=== PATIENT | female | born 1955 | race Caucasian/White ===

== ENCOUNTER 2021-06-20 15:08 | Outpatient (CLI) | payer OTHER, SELFPAY ==
--- NOTE | ~2021-06-20 | CT_ITS ---
EXAMINATION:CT lung screening DATE: 06/20/2021 15:42 INDICATION: Personal history of nicotine dependence. Current smoker with 30 pack year history. TECHNIQUE: Computed tomography (CT) of the chest was performed without intravenous contrast. Automate d exposure control and iterative reconstruction technique were employed. The dose-length product (DLP ) was 95.44 mGy-cm. COMPARISON: Chest single view 06/15/2020 FINDINGS: There is mild scarring at the lung apices. There is a 13 mm nodule in right lower lobe that is indeterminate for central calcification. There is mild emphysema. There is a 4 mm nodule in left upper lobe. No pleural effusion. There is an aberrant right subclavian artery. The heart size is norm al. There are coronary artery calcifications. No pericardial effusion. There is a mildly enlarged 10 x 14 mm right paratracheal lymph node. There is mild chronic anterior wedging of multiple thoracic ve rtebral bodies. There is severe thoracic spondylosis. IMPRESSION: 1. Lung-RADS category 4A: Suspicious. PET/CT or 3-month noncontrast, low-dose chest CT is recommended . Reviewed, dictated and finalized at location A. IMPRESSION: 1. Lung-RADS category 4A: Suspicious. PET/CT or 3-month noncontrast, low-dose c hest CT is recommended.
== END 2021-06-20 15:09 | disposition home or self-care (01) ==
LOC: CHSIMG 15:11
PROVIDERS: PCP Family Medicine; Visit Provider Family Medicine
DX: Z12.2 Encounter for screening for malignant neoplasm of respiratory organs (principal); Z87.891 Personal history of nicotine dependence
CPT/HCPCS: 71271

== ENCOUNTER 2021-07-05 13:23 | Outpatient (CLI) | payer OTHER, SELFPAY ==
--- NOTE | ~2021-07-05 | PE_ITS ---
EXAMINATION: PET skull to mid thigh DATE: 07/05/2021 15:25 INDICATION: Lung nodule. TECHNIQUE: Blood glucose level was 92 mg/dL. 10.252 mCi of 18-fluorodeoxyglucose (18-FDG) was adminis tered i.v. Low dose computed tomography (CT) images were acquired from the base of the brain to the p roximal thighs for attenuation correction and anatomic localization. Automated exposure control was e mployed. Dose-length product (DLP) was 601 mGy-cm. Positron emission tomography (PET) images were acq uired in the same distribution. COMPARISON: Chest CT 06/20/2021 FINDINGS: Head/neck: There is increased activity in the oropharynx without abnormal CT correlate, likely physio logic. There are no pathologically enlarged lymph nodes. Chest: There is mild scarring at the lung apices without increased activity. There is mild emphysema. There is a 13 mm nodule in right lung lower lobe with maximum SUV of 1.8. No pleural effusion. The h eart size is normal. There are coronary artery calcifications. No pericardial effusion. There is mild mediastinal lymphadenopathy without increased activity, likely reactive. There is an aberrant right subclavian artery. Abdomen/pelvis/proximal thighs: The liver, gallbladder, spleen, pancreas, adrenal glands, and kidneys are normal. There are no dilated loops of bowel. There is diverticulosis of the colon without eviden ce of diverticulitis. The appendix is normal. There is a 5.9 cm cyst without increased activity in l eft ovary. There are no pathologically enlarged lymph nodes. There is no free intraperitoneal fluid. IMPRESSION: 1. 13 mm right lung lower lobe nodule without increased activity, which may be benign, but low-grade neoplasm cannot be excluded. Noncontrast chest CT is recommended in 6 months. 2. 5.9 cm cyst in left ovary, likely benign. Pelvis ultrasound is recommended. Reviewed, dictated and finalized at location A. IMPRESSION: 1. 13 mm right lung lower lobe nodule without increased activity, which may be benign, but low-grade neoplasm cannot be excluded. Noncontrast chest CT is amish mmended in 6 months. 2. 5.9 cm cyst in left ovary, likely benign. Pelvis ultrasound is recommended.
[2021-07-05 13:54] LABS: Glucose Point of Care 92 mg/dl (65-105)
== END 2021-07-05 13:24 | disposition home or self-care (01) ==
LOC: ANHIMG 13:25
PROVIDERS: PCP Family Medicine; Visit Provider Family Medicine
DX: R91.1 Solitary pulmonary nodule (principal); N83.202 Unspecified ovarian cyst, left side
CPT/HCPCS: 78815; A9552

== ENCOUNTER 2021-07-16 07:37 | Outpatient (CLI) | payer OTHER, SELFPAY ==
--- NOTE | 2021-07-16 09:00 | EST_ITS ---
Patient Info Name: Radha Pickett Age: 66 years : 1955 Gender: Female Ht: 63 in Wt: 173 lbs BSA: 1.90 m2 HR: 59 bpm BP: 151 / 52 mmHg Heart Rhythm: Bradycardia Technical Quality: Excellent Exam Date: 07/16/2021 8:59 AM Exam Location: [facility] Patient Status: Outpatient Admit Date: 07/16/2021 Staff Ordering Physician: Rosario Baca Attending Provider: Rosario Baca Exercise Technologist: Christine Ohara CRT Exercise Physician: Lauren Thomas CEP Exam Type: CA stress juan carlos w NM Study Info Indications ChestPain - A nuclear stress test was performed. History/Risk Factors Tobacco Use: Current - Frequency Unknown History/Risk Factors Smoker. Summary 1. 1. Negative lexiscan stress test for ischemic ST changes by ECG criteria. 2. 2. Baseline hypertension. 3. 3. Nuclear scan to follow and will be reported separately. Please correlate with it. Protocol: LEXISCAN Stress ECG Details Stage: REST Duration (min): 1 min : 10 sec HR (bpm): 59 SBP (mmHg): 151 DBP (mmHg): 52 Stage: REST Duration (min): 5 min : 12 sec HR (bpm): 56 SBP (mmHg): 151 DBP (mmHg): 52 Stage: STAGE 1 Duration (min): 0 min : 11 sec HR (bpm): 56 SBP (mmHg): 151 DBP (mmHg): 52 Stage: RECOVERY Duration (min): 0 min : 48 sec HR (bpm): 70 SBP (mmHg): 151 DBP (mmHg): 52 Stage: RECOVERY Duration (min): 1 min : 48 sec HR (bpm): 73 SBP (mmHg): 151 DBP (mmHg): 52 Stage: RECOVERY Duration (min): 2 min : 48 sec HR (bpm): 71 SBP (mmHg): 151 DBP (mmHg): 52 Stage: RECOVERY Duration (min): 3 min : 48 sec HR (bpm): 69 SBP (mmHg): 159 DBP (mmHg): 50 Stage: RECOVERY Duration (min): 4 min : 48 sec HR (bpm): 69 SBP (mmHg): 159 DBP (mmHg): 50 Stage: RECOVERY Duration (min): 5 min : 48 sec HR (bpm): 65 SBP (mmHg): 150 DBP (mmHg): 49 Stage: RECOVERY Duration (min): 6 min : 2 sec HR (bpm): 66 SBP (mmHg): 150 DBP (mmHg): 49 Rest HR: 56 bpm Peak HR: 73 bpm Rest Sys BP: 151 mmHg Peak Sys BP: 163 mmHg Max Pred HR: 156 bpm % Max Pred HR: 47 % Target HR: 133 bpm Max RPP: 11,899 bpm*mmHg Termination Reason: Completed Protocol Cardiac Symptoms: Chest Pressure, Dyspnea Total Time: 0 min : 11 sec Rest Lamar BP: 52 mmHg Peak Lamar BP: 38 mmHg Total Dose: 0.4 mg Resting ECG Sinus bradycardia, borderline ST abnormality in anterolateral leads. Stress ECG No abnormal ST/T wave changes. Arrhythmias No arrhythmias were observed during the examination. Report Signatures
--- NOTE | 2021-07-16 11:46 | WPDCARIOSTRE ---
Nuclear Stress Test INDICATIONS Indications: Shortness of breath PROCEDURE Procedure Performed: Myocardial Perf Spect-Multi Procedure: Patient underwent a lexiscan stress test and immediately was injected with 33.3 mCi of cardiolyte. Multiple tomographic images were obtained. These are of good quality. There is evidence of small size, mild inferior perfusion defect with stress imaging. A separate resting images were obtained after patient was injected with 10 mCi of cardiolyte. Multiple tomographic images were obtained. These are of good quality. There is evidence of small size, mild inferior perfusion defect with rest imaging. CONCLUSION Conclusion: 1. Myocardial perfusion imaging demonstrating fixed small size inferior perfusion defects suggestive of diaphragmatic attenuation artifact. 2. No evidence of reversible ischemia. 3. Left ventriculogram demonstrates normal measured ejection fraction of 77% with no wall motion abnormalities. 4. TID score 0.87 is normal.
== END 2021-07-16 07:38 | disposition home or self-care (01) ==
LOC: CHSCARD 07:38
PROVIDERS: PCP Family Medicine
DX: I25.111 Atherosclerotic heart disease of native coronary artery with angina pectoris with documented spasm (principal)
CPT/HCPCS: 78452; 93017; A9502; J2785

== ENCOUNTER 2021-08-09 09:20 | Outpatient (CLI) | payer OTHER, SELFPAY ==
--- NOTE | ~2021-08-09 | US_ITS ---
EXAMINATION: US pelvic complete w TV DATE: 08/09/2021 09:56 INDICATION: Left ovarian cyst seen on PET scan. Comparison:PET scan dated 07/05/2021 TECHNIQUE: Multiple transabdominal and endovaginal sonographic images of the pelvis performed. FINDINGS: The uterus measures 5.1 x 3.1 x 2.3 cm. The endometrial complex measures 1.5 mm. The right ovary is not visualized. Left ovary measures 5.4 x 5 x 5.5 cm. There is a 4.7 x 4.5 x 4.2 c m left ovarian cyst. No significant free fluid in the pelvis. There is no free fluid in the pelvis. There are no abnormal masses seen on either side. IMPRESSION: 1. 4.7 cm left ovarian cyst, likely benign. Recommend follow-up ultrasound in 6-8 weeks to assess for resolution. Reviewed, dictated and finalized at location B. IMPRESSION: 1. 4.7 cm left ovarian cyst, likely benign. Recommend follow-up ultrasound in 6 -8 weeks to assess for resolution.
== END 2021-08-09 09:21 | disposition home or self-care (01) ==
LOC: CHSIMG 09:25
PROVIDERS: PCP Family Medicine
DX: N83.202 Unspecified ovarian cyst, left side (principal)
CPT/HCPCS: 76830; 76856

== ENCOUNTER 2022-01-31 12:56 | Outpatient (CLI) | payer OTHER, SELFPAY ==
--- NOTE | ~2022-01-31 | CT_ITS ---
EXAMINATION:CT diagnostic chest wo con DATE: 01/31/2022 13:37 INDICATION: Lung nodule follow-up. TECHNIQUE: Computed tomography (CT) of the chest was performed without intravenous contrast. Automate d exposure control and iterative reconstruction technique were employed. The dose-length product (DLP ) was 100.75 mGy-cm. COMPARISON: Chest CT 06/20/2021, PET CT 07/05/2021, chest single view 06/15/20 FINDINGS: There is mild emphysema. There is mild scarring at the lung apices. There is a 13 mm nodule in right lung lower lobe with central calcification, consistent with old granulomatous disease. Calc ified right hilar and mediastinal lymph nodes are consistent with old adenomatous disease. There is s table mild noncalcified mediastinal lymphadenopathy, likely reactive. No pleural effusion. The heart size is normal. There are coronary artery calcifications. No pericardial effusion. There is an aberra nt right subclavian artery. There is mild chronic anterior wedging of multiple thoracic vertebral bod ies. There is thoracic kyphosis and severe spondylosis. IMPRESSION: 1. Stable 13 mm pulmonary nodule, now with central calcification, consistent with old granulomatous d isease. Reviewed, dictated and finalized at location A. ER INVESTMENT CASTING IMPRESSION: 1. Stable 13 mm pulmonary nodule, now with central calcification, consistent wi th old granulomatous disease.
--- NOTE | ~2022-01-31 | US_ITS ---
EXAMINATION: US pelvic complete w TV DATE: 01/31/2022 13:48 INDICATION: Left ovarian cyst. TECHNIQUE: Multiple transabdominal and transvaginal sonographic images of the pelvis were obtained. COMPARISON: Ultrasound 08/09/2021, PET/CT 07/05/21 FINDINGS: TRANSABDOMINAL ULTRASOUND: The uterus measures 3.8 x 2.2 x 2.2 cm. There is no free fluid in the pelvis. TRANSVAGINAL ULTRASOUND: The endometrial complex measures 3 mm in thickness. The right ovary is not visualized. The left ovary measures 5.7 x 5.0 x 4.9 cm. There is a 5.2 cm cyst with peripheral low level echoes in left ovary. IMPRESSION: 1. Persistent 5.2 cm cyst with peripheral low level echoes in left ovary, probably benign. Consider s urgical evaluation. Reviewed, dictated and finalized at location A. TE MIXER IMPRESSION: 1. Persistent 5.2 cm cyst with peripheral low level echoes in left ovary, proba irineo benign. Consider surgical evaluation.
== END 2022-01-31 12:57 | disposition home or self-care (01) ==
PROVIDERS: PCP Family Medicine; Visit Provider Family Medicine
DX: R91.1 Solitary pulmonary nodule (principal); N83.202 Unspecified ovarian cyst, left side
CPT/HCPCS: 71250; 76830; 76856

== ENCOUNTER 2022-03-06 01:26 | Day surgery (SDC) | payer OTHER, SELFPAY ==
--- NOTE | 2022-03-04 11:02 | PC.NURSE ---
Report to the Outpatient Waiting Room, entrance under the green pavilion located off [address], at time __1000 on date __03/06/22 . Planned Procedure Time: __1200 . Time changes happen often and if your time is changed the preop area will call you the afternoon before. - You and your visitor will be asked to self-screen and do not enter if you have any COVID symptoms. - Only one visitor is requested with a max of two and NO children visitors are allowed at this time. - The patient visitor may be requested to leave or wait in car when not with patient due to distancing restrictions. - A mask is optional within the hospital. Patients may have clear liquids (water, carbonated beverages, clear teas, apple juice) until 3 hours prior to surgery with a maximum of 20 ounces. - No food from midnight until time of surgery - Infants may have breast milk until 4 hours before surgery, infant formula 6 hours prior to surgery. - Children will be allowed to drink immediately following surgery. If applicable, please bring a bottle or sippy cup to assist with drinking. Juice, water, soda, and popsicles are readily available. For infants on formula, please bring formula the day of surgery. Pacifiers are allowed. Take the following medications with a SIP of water the morning of surgery: _CARVEDILOL,FLUOXETINE Medications to discontinue per physician __PT STATES SHE STOPPED HER ASPIRIN ON 03/01/22 LAST DOSE (ON HER OWN) ALL VITAMINS AND SUPPLEMENTS 3 DAYS PRE OP Date to take last dose 03/02/22 Please no make-up, nail kinyarwanda, hairspray, perfume, deodorant, or body powder the day of surgery. No jewelry (including any body piercings) or valuables the day of surgery, leave them at home. Please take a shower or bath the night before, or the morning of, surgery with an antibacterial soap. Wear comfortable, loose fitting clothing. Children are encouraged to wear pajamas. - Jewelry must be removed prior to entering the operating room. Rings and piercings that are not removed may be cut off. - The hospital will not accept responsibility for valuables. - Please leave all valuables, including medications, at home the day of surgery. If you are going home after surgery, a licensed special client bus driver must drive you home. - NO public transportation without another adult if you receive anesthesia. - We recommend that an adult stay with you for 24 hours following discharge. - We also recommend that you do not drive, make important decision, drink alcoholic beverages, or take any drugs that were not prescribed by your health care provider for at least 24 hours after your discharge time. For Pediatric surgeries, we recommend two adults accompany the child home. Follow any additional instructions given to you from your surgeon. If you or anyone in your household have experienced Covid symptoms in the past week, please notify your surgeon or the nurse liaison at the phone number below for possible testing. Telephone instructions given to __PATIENT and asked if any additional questions and then verbalized understanding. Patient advised to call surgeon office or pre surgery nurse liaison [phone] if any additional questions.
[2022-03-04 11:13] VITALS: BMI 28.6
[2022-03-06] VITALS (10 sets, daily range): BP systolic 138–156; BP diastolic 49–69; PULSE 59–74; RESP 10–20; TEMP 36.4–36.7; O2SAT 95–100
[2022-03-06] MEDS: LACTATED RINGERS 1,000 ML 30 ML IV CONT ×2 (08:38→11:26)
[2022-03-06] MEDS: KETOROLAC 15 MG/ML VIAL (*BKC) IV PUSH (09:34)
[2022-03-06] MEDS: ACETAMINOPHEN 500 MG TABLET 1000 MG PO (09:34)
--- NOTE | 2022-03-06 09:38 | WPDANESEPPF ---
Anes - Initial Pre Proc Eval Procedure: Operation Date: 03/06/22 10:00 Proposed Procedures p Laparoscopic Bilateral Salpingo Oophorectomy - Mireya Pope MD Date/Time: 03/06/22 09:38 Surgeon: Mireya Pope MD Pre Op Diagnosis: cyst left ovary Patient Data Age: 66 Gender: F Height: 1.63 m Weight: 75.75 kg Last Vital Signs Temp 36.4 C 03/06/22 08:25 Pulse 59 L 03/06/22 08:25 Resp 18 03/06/22 08:25 BP 152/49 H 03/06/22 08:25 Pulse Ox 100 03/06/22 08:25 O2 Del Method Room Air 03/06/22 08:25 Allergies Allergy/AdvReac Type Severity Reaction Status Date / Time Penicillins Allergy Hives Verified 03/06/22 08:40 Home Medications Medication Instructions Recorded Confirmed Type atorvastatin 80 mg tablet 80 mg PO DAILY 06/15/20 03/06/22 History carvedilol 3.125 mg tablet 3.125 mg PO BID 06/15/20 03/06/22 History fluoxetine 20 mg capsule (Prozac) 20 mg PO DAILY 06/15/20 03/06/22 History ascorbic acid (vitamin C) 1,000 mg 1,000 mg PO DAILY 03/04/22 03/06/22 History tablet aspirin 325 mg capsule 325 mg PO HS 03/04/22 03/06/22 History calcium citrate 250 mg 1 tablet PO DAILY 03/04/22 03/06/22 History calcium-vitamin D3 5 mcg (200 unit) tablet zinc 50 mg tablet 50 mg PO DAILY 03/04/22 03/06/22 History Patient hx anesthesia problems: none Family hx anesthesia problems: none Results Review: All pre-operative results and documents have been reviewed as part of the pre-operative evaluation. [facility] Social History Social History Smoking packs per day: 1 Smoking cigarettes per day: 20.0 Years smoked: 46 Smoking pack-years: 46.00 Smoking status: Current every day smoker Tobacco type: cigarettes Living arrangements: with family Spiritual care concerns: No Anes - Eval Final PreProcedure Day of Procedure 03/06/22 09:38 Patient weight: obese Heart: regular rate and rhythm Lungs: decreased breath sounds Airway: Mallampati scale class II Neurological: alert and oriented Last oral intake: >/= 8 hours ASA classification: III Emergent: no Anesthetic plan: proceed Anesthesia type and monitoring: general ETT and standard monitoring Results Review: All pre-operative results and documents have been reviewed as part of the pre-operative evaluation. Informed Consent: The patient's anesthetic plan and its attendant risks and benefits were discussed with the patient/family/POA. Questions were solicited and answers provided to the satisfaction of the patient/family/POA.
[2022-03-06] MEDS: SCOPOLAMINE 1.5 MG PATCH TRANSDERM (09:42)
--- NOTE | 2022-03-06 09:57 | WPDHPUPDATE1 ---
History and Physical Update Update Date/Time: 03/06/22 09:57 History and Physical has been reviewed, including an updated exam of the patient. There are NO changes in the patient's condition. Risks, benefits, and alternatives have been discussed and questions answered. Patient agrees to proceed with procedure.
--- NOTE | 2022-03-06 11:22 | P.OP_ITS ---
Procedure Note - Detailed Date of Procedure 03/06/22 Pre-op Diagnosis cyst left ovary Post-op Diagnosis Same Procedure Performed laparoscopic bilateral salpingo-oophorectomy. Surgeon Mireya Pope MD Anesthesia General Indications Ovarian cyst Findings 5-6 cm left ovarian cyst, benign appearing, normal-appearing right ovary. Normal appearing pelvis otherwise. Description of Procedure The patient was taken to the operating room. She was prepped and draped in the dorsal lithotomy position after induction general anesthesia. A 5 mm incision was made with a scalpel on the abdominal skin in the left upper quadrant of the abdomen. A 5 mm trocar was inserted into the intra-abdominal cavity under direct visualization the scope. In the same fashion an 11 mm left lower quadrant trocar was inserted and a 5 mm infraumbilical trocar was inserted. The sigmoid colon flexure was freed and the colon was moved medially to some degree to so the infundibulopelvic ligament could be isolated and the ureter co uld be identified. The infundibulopelvic ligament was cauterized transected with LigaSure cautery. The paraovarian tissue/ mesosalpinx was cauterized transected with LigaSure cautery. The mesosalpinx between the suspensory ligament of the ovary and the round ligament was cauterized LigaSure cautery to the level of the uterine cornua. This was done in bilateral fashion. The ovary with cyst was placed in endobag and taken out the left lower quadrant trocar site. It was taken out in tact. It was drained inside the bag as the openings the bag was extracorporeal. Right ovary segment the quadrant trocar site. The procedure was terminated. The ureters were identified prior to that were found to be intact. The pelvis was irrigated. Pneumoperitoneum was reduced. The pelvis was irrigated. The pneumoperitoneum was reduced. The trocars were removed. Skin was closed with subcuticular 4 micro. The patient's incisions were covered with Dermabond. She was taken recovery room in stable condition. Sponge lap and needle counts were correct x2. Estimated Blood Loss 20 Pathology Yes Complications No immediate complications Condition Stable Disposition Same day
[2022-03-06] MEDS: fentaNYL CITRATE INJ (*CRX) 100 MCG/2 ML VIAL 25 MCG IV PUSH ×4 (11:55→12:22)
== END 2022-03-06 13:45 | disposition home or self-care (01) ==
PROVIDERS: PCP Family Medicine; Visit Provider Obstetrics & Gynecology
PROC: (CPT 49320; principal; 2022-03-06 10:00)
DX: D27.1 Benign neoplasm of left ovary (principal); N83.8 Other noninflammatory disorders of ovary, fallopian tube and broad ligament; F17.210 Nicotine dependence, cigarettes, uncomplicated; Z79.82 Long term (current) use of aspirin; E66.9 Obesity, unspecified; Z68.28 Body mass index [BMI] 28.0-28.9, adult
CPT/HCPCS: 58661; 88305; 88307; A9270; J0330; J1100; J1885; J2250; J2405; J2704; J3010; J7030; J7120

== ENCOUNTER 2023-09-17 16:05 | Outpatient (CLI) | payer MEDICARE, SELFPAY ==
--- NOTE | 2023-09-17 16:23 | ECG_ITS ---
Test Date: 2023-09-17 16:31:[address] [place] Rate: 56 P: 78 DC: 194 QRS: 84 QRSD: 88 T: 76 QT: 450 QTc: 437 Interpretive Statements SINUS BRADYCARDIA INCOMPLETE RIGHT BUNDLE BRANCH BLOCK NONSPECIFIC ST & T-WAVE ABNORMALITY No previous ECG available for comparison Electronically Signed On 09-18-2023 13:27:14 CDT by Ethan Sharma M.D.
[2023-09-17 16:34] LABS: Basophils Absolute Auto 0.07 K/mm3 (0.00-0.10); Basophils Percent Auto 0.8 % (0.0-1.0); Eosinophils Absolute Auto 0.26 K/mm3 (0.02-0.50); Eosinophils Percent Auto 2.8 % (1.0-6.0); Hematocrit 36.3 % (35.0-42.0); Immature Granulocyte Absolute 0.03 K/mm3 (0.00-0.00); Immature Granulocyte Percent A 0.3 % (0.0-0.0); Lymphocytes Absolute Auto 4.02 K/mm3 (1.10-4.50); Lymphocytes Percent Auto 43.8 % (18.0-42.0); Mean Corpuscular HGB Conc 33.1 g/dL (32-36); Mean Corpuscular Hemoglobin 32.1 pg (27.0-31.0); Mean Corpuscular Volume 97.1 fL (78.0-102.0); Mean Platelet Volume 10.5 fl (9.2-11.8); Monocytes Absolute Auto 0.81 K/mm3 (0.10-0.90); Monocytes Percent Auto 8.8 % (2.0-11.0); Neutrophils Absolute Auto 3.99 K/mm3 (1.70-7.20); Neutrophils Percent Auto 43.5 % (50.0-70.0); Platelet Count Result 216 K/mm3 (150-420); Red Blood Count 3.74 M/mm3 (4.20-5.40); Red Cell Distribution Width 13.9 % (11.6-14.4); White Blood Count 9.2 K/mm3 (4.8-10.8)
[2023-09-17 16:46] LABS: Anion Gap 7 mmol/L (4-12); Blood Urea Nitrogen 28 mg/dL (7-18); Calcium 9.2 mg/dL (8.5-10.1); Carbon Dioxide 27 mmol/L (21-32); Chloride 106 mmol/L (98-108); Estimated Glomerular Filt Rate 44; Glucose 97 mg/dL (70-99); Osmolality Calculated 295 mOsm/kg (285-295); Potassium 4.9 mmol/L (3.5-5.1); Sodium 140 mmol/L (136-145)
== END 2023-09-17 16:06 | disposition home or self-care (01) ==
PROVIDERS: PCP Family Medicine
DX: K43.9 Ventral hernia without obstruction or gangrene (principal); I25.2 Old myocardial infarction; I45.19 Other right bundle-branch block
CPT/HCPCS: 36415; 80048; 85025; 93005

== ENCOUNTER 2024-05-28 11:00 | Outpatient (RCR) | payer MEDICARE, SELFPAY ==
[2024-04-29 14:00] VITALS: BP 124/56; PULSE 58; RESP 16; O2SAT 99; BMI 28.0
== END 2024-06-04 13:40 | disposition home or self-care (01) ==
PROVIDERS: PCP Family Medicine; Visit Provider Family Medicine
DX: Z98.61 Coronary angioplasty status (principal)
CPT/HCPCS: 93798

== ENCOUNTER 2024-07-25 10:02 | Emergency (ER) | payer MEDICARE, SELFPAY ==
[2024-07-25] VITALS (14 sets, daily range): BP systolic 116–141; BP diastolic 47–56; PULSE 55–64; RESP 12–18; TEMP 35.9; O2SAT 96–98
--- NOTE | ~2024-07-25 | XR_ITS ---
XR chest 1V portable Ordering provider: Bin Sahu MD History: 69 years Female with . onset today, Chest pain . Comparison: June 15, 2020 FINDINGS: MEDIASTINUM: The cardiac silhouette is not enlarged. LUNGS: No infiltrates, effusions or pneumothorax. OTHER: No free air under the diaphragm. IMPRESSION: No acute cardiopulmonary pathology. Reviewed, dictated and finalized at location A.
--- NOTE | 2024-07-25 10:03 | ED_ITS ---
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 She took a nitro that did not really help at the time. No nausea vomiting. She has chest tightness across the precordium for the past few hours. she had an NM last year with similar symptoms and got a stent and is taking Effient. At this time, the pain is minimal but slightly present. She also gets lots of GERD issues. tobacco abuse. MD complaint: chest pain and chest discomfort ( Chest tightness) Pertinent past history: coronary artery disease and other ( hyperlipidemia) Onset (ago): hour(s) (2) Timing of current episode: episodic Prior episodes: Yes Onset: during exertion Pain location: substernal and left chest Pain radiation: none Severity: mild Pain scale (0-10): 2 Quality: tightness Relieving factors: nothing Exacerbating factors: nothing Context: other ( patient having chest pain after moving and other patient on the [place] prior to arrival) Associated symptoms: other ( none) Treatment prior to arrival: nitroglycerin ( this did not make changes to the chest pain) Risk Factors Coronary artery disease risk factors: smoking history and hyperlipidemia Thoracic aortic dissection risk factors: none Related Data Home Medications ?Medication ?Instructions ?Recorded ?Confirmed ?Last Taken ?Type atorvastatin 80 mg tablet 80 mg PO DAILY 06/15/20 03/06/22 Unknown History fluoxetine 20 mg capsule (Prozac) 20 mg PO DAILY 06/15/20 03/06/22 03/06/22 05:30 History ascorbic acid (vitamin C) 1,000 mg 1,000 mg PO DAILY 03/04/22 03/06/22 Unknown History tablet calcium 250 mg (as 1 tablet PO DAILY 03/04/22 03/06/22 Unknown History citrate)-vitamin D3 5 mcg (200 unit) tablet zinc 50 mg tablet 50 mg PO DAILY 03/04/22 03/06/22 Unknown History amlodipine 5 mg tablet mg 07/25/24 Unknown History aspirin 81 mg tablet,delayed mg 07/25/24 Unknown History release carvedilol 6.25 mg tablet mg 07/25/24 Unknown History lisinopril 5 mg tablet mg 07/25/24 Unknown History nitroglycerin 0.4 mg sublingual mg 07/25/24 Unknown History tablet prasugrel HCl 10 mg tablet mg 07/25/24 Unknown History Allergies Allergy/AdvReac Type Severity Reaction Status Date / Time Penicillins Allergy Hives Verified 07/25/24 10:30 Review of Systems 2 Review of Systems: All systems reviewed & are unremarkable except as noted in HPI and below Constitutional: Constitutional: Reports no additional constitutional complaints Eyes: Eyes: Reports no additional eye complaints ENT: Reports system reviewed and no additional complaints, except as documented Cardiovascular: Cardiovascular: Reports no additional cardiovascular complaints Respiratory: Respiratory: Reports no additional respiratory complaints Gastrointestinal: Gastrointestinal: Reports no additional gastrointestinal complaints Genitourinary: Genitourinary: Reports no additional female genitourinary complaints Musculoskeletal: Musculoskeletal: Reports no additional musculoskeletal complaints Integumentary/Breasts: Skin/Breast: Reports system reviewed and no additional complaints, except as docu Neurologic: Reports system reviewed and no additional complaints, except as documented Psychiatric: Psychiatric: Reports no additional psychiatric complaints Endocrine: Endocrine: Reports no additional endocrine complaints Hematologic/Lymphatic: Hematologic/Lymphatic: Reports no additional hematologic/lymphatic complaints Allergic/Immunologic: Allergic/Immunologic: Reports no additional allergic/immunologic complaints PMFSH Social History Social History Smoking packs per day: 1 Smoking cigarettes per day: 20.0 Years smoked: 46 Smoking pack-years: 46.00 Smoking status: Current every day smoker Tobacco type: cigarettes Living arrangements: with family Spiritual care concerns: No Exam 2 Const: General: healthy appearing Nutritional Appearance: well nourished Orientation/consciousness: patient oriented x3 HENMT: Head: normal to inspection Ears: external ears normal F telma/Nose/Sinus: Normal external nose present Eyes: Conjunctivae: conjunctivae normal Pupils: Equal, round and reactive pupils present EOM: EOMs intact bilaterally Neck: Neck: normal visual inspection Chest: Chest palpation & inspection: normal inspection of the chest Resp: Effort & Inspection: normal respiratory effort and not labored A uscultation: clear to auscultation bilaterally and no crackles Cardio: Rate: regular rate Rhythm: regular rhythm Heart sounds: no murmurs GI: Inspection: non-distended GI Palp: Yes Soft to palpation and No Tenderness to palpation present (GI) Auscultation: normal bowel sounds : General: Yes bladder normal to palpation Back/Spine/Pelvis: Back: no CVA tenderness Skin: General skin exam: normal color Rashes: no rashes Wounds: no wounds Neuro: General: patient oriented x3 Cranial nerves: Yes Nystagmus not present Speech: normal speech Gait exam (Neuro): Normal gait present Extrem: General: normal to inspection Psych: Mental Status: mental status grossly normal Affect: normal affect Attitude: cooperative Course Vital Signs Vital signs: Vital Signs Temperature 35.9 C L 07/25/24 10:05 Pulse Rate 61 07/25/24 10:05 Respiratory Rate 18 07/25/24 10:05 Blood Pressure 128/56 L 07/25/24 10:05 Pulse Oximetry 98 07/25/24 10:05 Oxygen Delivery Room Air 07/25/24 10:05 Temperature 35.9 C L 07/25/24 10:05 Pulse Rate 55 L 07/25/24 10:05 Respiratory Rate 18 07/25/24 10:05 Blood Pressure 128/56 L 07/25/24 10:05 Pulse Oximetry 98 07/25/24 10:05 Oxygen Delivery Room Air 07/25/24 10:05 MDM - Chest Pain MDM Narrative Medical decision making narrative: patient is a 69-year-old female with some chest pain at this time. We will go ahead and do a cardiac workup. We will get her pain control for the chest pain as needed. She is already taking aspirin. I discussed with the patient about the elevated creatinine and BUN levels but she said she will just drink water to repair that problem at this time. She will need to get that recheck at follow- up. Further, we discussed checking a troponin again in a few hours but she decided that she would like to go back to work at this time and not recheck troponin levels. Her chest pain has resolved at this time. 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 She will come back to the ER for any worse or continued symptoms. Lab Data Attestation: I reviewed the patient's lab results. 07/25/24 10:39 07/25/24 10:39 Labs: Lab Results 07/25/24 Range/Units 10:39 WBC 7.7 (4.8-10.8) K/mm3 RBC 3.73 L (4.20-5.40) M/mm3 Hgb 11.6 L (11.7-13.8) g/dL Hct 35.7 (35.0-42.0) % MCV 95.7 (78.0-102.0) fL MCH 31.1 H (27.0-31.0) pg MCHC 32.5 (32-36) g/dL RDW 13.2 (11.6-14.4) % Plt Count 204 (150-420) K/mm3 MPV 10.1 (9.2-11.8) fl Immature Gran % (Auto) 0.3 H (0.0-0.0) % Neut % (Auto) 55.0 (50.0-70.0) % Lymph % (Auto) 35.0 (18.0-42.0) % [place] % (Auto) 6.8 (2.0-11.0) % Eos % (Auto) 2.3 (1.0-6.0) % Baso % (Auto) 0.6 (0.0-1.0) % Lymph # (Auto) 2.71 (1.10-4.50) K/mm3 [place] # (Auto) 0.53 (0.10-0.90) K/mm3 Eos # (Auto) 0.18 (0.02-0.50) K/mm3 Baso # (Auto) 0.05 (0.00-0.10) K/mm3 Abs Immat Gran (auto) 0.02 H (0.00-0.00) K/mm3 Absolute Neuts (auto) 4.25 (1.70-7.20) K/mm3 Absolute Nucleated RBC 0.00 (0.00-0.00) K/mm3 Nucleated RBC % 0.0 (0-0.0) % Sodium 140 (136-145) mmol/L Potassium 4.5 (3.5-5.1) mmol/L Chloride 105 (98-108) mmol/L Carbon Dioxide 25 (21-32) mmol/L Anion Gap 10 (4-12) mmol/L BUN 32 H (7-18) mg/dL Creatinine 1.52 H (0.55-1.02) mg/dL Estim Creat Clear Calc 32 ml/min Estimated GFR 34 L (59 - ) Glucose 130 H (70-99) mg/dL Calculated Osmolality 298 H (285-295) mOsm/kg Calcium 9.1 (8.5-10.1) mg/dL Total Bilirubin 0.4 (0.00-1.00) mg/dL AST 17 (15-37) U/L ALT 28 (14-59) U/L Alkaline Phosphatase 83 (46-116) U/L Troponin I 4.6 (0.00-60.4) ng/L NT-Pro-B Natriuret Pep 494 H (0-125) pg/mL Total Protein 7.0 (6.4-8.2) g/dL Albumin 3.5 (3.4-5.0) g/dL Lipase 52 (16-77) U/L Imaging Data Attestation: I personally reviewed and interpreted this imaging study as follows: Radiologist's impression: Chest x-ray negative for acute process ECG Data EKG #1: Attestation: I personally reviewed and interpreted this ECG as follows: ECG completion date: 07/25/24 ECG completion time: 10:38 EKG Interpretation: normal rate, sinus rhythm, no ectopy, non-specific ST changes, normal QRS, normal QT, NL axis and no acute changes Discharge Plan Discharge Clinical Impression: Atypical chest pain Patient Disposition: Home Condition: Stable Instructions: Chest Pain (ED) Additional Instructions: Please follow-up with primary doctor in the next week. Please follow-up with the driver operator in the next week. If further chest pain, come back to the ER for further evaluation. Drink plenty of fluids such as water as you do have a dehydration situation and you need to have the creatinine rechecked at follow- up. Patient Language: Bengali Prescriptions: No Action carvedilol 6.25 mg tablet amlodipine 5 mg tablet aspirin 81 mg tablet,delayed release (DR/EC) nitroglycerin 0.4 mg tablet, sublingual lisinopril 5 mg tablet prasugrel HCl 10 mg tablet atorvastatin 80 mg tablet 80 mg PO DAILY Patient Comments: TAKES AT HS fluoxetine [Prozac] 20 mg capsule 20 mg PO DAILY Patient Comments: TAKES 40 MG IN AM ascorbic acid (vitamin C) 1,000 mg Tablet 1,000 mg PO DAILY zinc 50 mg Tablet 50 mg PO DAILY calcium citrate-vitamin D3 250 mg-5 mcg (200 unit) Tablet 1 tablet PO DAILY Follow-up/Referrals: Keven,Lior, M.D. [Primary Care Provider] - Time of Disposition: 11:24
--- NOTE | 2024-07-25 10:03 | ECG_ITS ---
Test Date: 2024-07-25 10:08:06 Measurements Intervals [place] Rate: 60 P: 57 [place]: 176 QRS: 69 QRSD: 89 T: 75 QT: 438 QTc: 441 Interpretive Statements SINUS RHYTHM POSSIBLE RIGHT VENTRICULAR CONDUCTION DELAY [RSR (QR) IN V1/V2] MODERATE T-WAVE ABNORMALITY, CONSIDER ANTERIOR ISCHEMIA [-0.1+ mV T-WAVE IN V3/V4] Compared to ECG 09/17/2023 16:31:17 Possible ischemia now present Sinus bradycardia no longer present Incomplete right bundle-branch block no longer present T-wave abnormality still present Electronically Signed On 07-26-2024 06:55:55 CDT by Anam Emmanuel M.D.
--- OUTSIDE RECORDS SUMMARY | 2024-07-25 10:04 | XMS_ITS | Encounter Summary ---
Author Organization [facility] Address [address] [place] [address] Care Team Providers Care Analytical Laboratory Technician Name Role Phone Mariah Segura Primary Care Provider [phone] Lior Baca MD Primary Care Provider Enrike Kent MD Unavailable [phone] Josefa Green MD Unavailable [phone] Encounter Details Date Type Department Care Team (Late st Contact Info) Description 06/07/2017 Abstract [facility] CONVERSION [address] [place], [place] [id number] , Generic ConversionMD Social History Tobacco Use Types Packs/Day Years Used Date Smoking Tobacco: Former Comments Unknown Sex and Gender Information Value Date Recorded Sex Assigned at Female 09/24/2023 12:17 PM CDT Legal Sex Female 8:48 PM CDT Gender Identity Female 09/24/2023 12:17 PM CDT Sexual Orientation Straight 09/24/2023 12 :17 PM CDT documented as of this encounter Plan of Treatment Upcoming Encounters Date Type Department Care Team (Late st Contact Info) Description 08/10/2024 10:30 AM CDT Appointment [facility] Non Invasive Cardiology - [facility] [address], [place] [id number] Enrike Kent MD [address] [facility] [address] [place] [address] 09/07/2024 9:00 AM CDT [facility] [address] [place] [address] Enrike Kent MD [address] [id number] documented as of this encounter Visit Diagnoses Not on filedocumented in this encounter Care Teams Analytical Laboratory Technician Relationship Specialty Start Date End Date Mariah Segura PA [facility] [address] [place] [address] 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
--- OUTSIDE RECORDS SUMMARY | 2024-07-25 10:04 | XMS_ITS | Clinical Summary ---
Author Organization [facility] Address [address] [place] [address] Care Team Providers Care Room Server Name Role Phone Lior Baca MD Primary Care Provider Enrike Kent MD Unavailable [phone] Josefa Green MD Unavailable [phone] Allergies Active Allergy Reactions Criticality Noted Date Comments Varenicline Headache 04/27/2024 Rosuvastatin Other (see comment) 04/27/2024 Leg pain Doxycycline Other (see comment) 04/27/2024 Tetracyclines; red face Venlafaxine Other (see comment) 04/27/2024 Sweating Erythromycin Hives 04/27/2024 Penicillins Anaphylaxis High 09/01/2015 Medications atorvastatin 80 MG tablet Take 1 tablet (80 mg total) by mouth nightly at bedtime. Active FLUoxetine (PROZAC) 40 MG capsule Take 1 capsule (40 mg total) by mouth daily. Active omeprazole EC (PRILOSEC OTC) 20 MG tablet Take 1 tablet (20 mg total) by mouth daily. Every other day Active prasugrel (EFFIENT) 10 MG tablet Take 1 tablet (10 mg total) by mouth daily. Active aspirin EC (ECOTRIN) 81 MG tablet Take 1 tablet (81 mg total) by mouth daily. Active vitamin C (ASCORBIC ACID) 1000 MG tablet Take 1 tablet (1,000 mg total) by mouth daily. Active fluticasone propionate (FLONASE) 50 MCG/ACT nasal spray 2 sprays by Each Nostril route daily. Active nitroglycerin (NITROSTAT) 0.[address] 1 tablet (0.4 mg total) under the tongue every 5 (five) minutes as needed for Chest Pain. Active calcium carbonate (OS-LUIS) 600 MG tablet Take 1 tablet (600 mg total) by mouth 2 (two) times daily. Active Cetirizine HCl (ZYRTEC ALLERGY) 10 MG Cap Take 10 mg by mouth daily. Active vitamin D3 (CHOLECALCIFERO L) 25 mcg tablet Take 1 tablet (25 mcg total) by mouth daily. Active zinc gluconate 50 MG Tab Take 1 tablet (50 mg total) by mouth daily. Active B Complex Vitamins (VITAMIN B-COMPLEX) Tab Take 1 tablet by mouth daily. Active evolocumab (REPATHA SURECLICK) 140 MG/ML injection (PEN) Inject 1 mL (140 mg total) into the skin every 14 (fourteen) days. Active lisinopril (PRINIVIL) 5 MG tablet Take 1/2 tablet for 3 days, then increase to 1 tablet by mouth daily 90 tablet 3 5 Active carvedilol (COREG) 6.25 MG tablet Take 1 tablet (6.25 mg total) by mouth 2 (two) times daily. 60 tablet 5 5 Active carvedilol (COREG) 6.25 MG tablet Take 1 tablet (6.25 mg total) by mouth 2 (two) times daily. 3 07/08/19 25 Discontinu ed(Reorder ) Active Problems Problem Noted Date Diagnosed Date Nonrheumatic mitral valve regurgitation 05/04/19 25 Primary hypertension 05/04/2024 Ventral hernia without obstruction or gangrene 0 09/17/2023 COPD (chronic obstructive pu lmonary disease) ([facility]) 09/17/2023 Kidney disease 07/28/2019 Hyperlipidemia 07/28/2019 Anxiety 07/28/2019 Heart attack ([facility]) 07/28/2019 Encounters Date Type Department Care Team Description 07/07/2024 Telephone [facility] [address] [place] [address] Enrike Kent MD Reschedule (Stress echo) 06/10/2024 8:17 AM CDT - 06/10/2024 11:59 PM CDT Hospital Encounter [facility] [address] [place] [address] Markus Vanegas NP-[place] Discharge Disposition: Home or Self Care (Routine Discharge) 06/10/2024 Travel 05/26/2024 Telephone [facility] [address] [place] [address] Enrike Kent MD Reschedule (Stress echo) 05/07/2024 9:15 AM CELL PREPARER - 05/07/2024 11:59 PM CELL PREPARER Hospital Encounter [facility] [address] [place] [address] Markus Vanegas TRACK REPAIR SUPERVISOR-[place] Discharge Disposition: Home or Self Care (Routine Discharge) 05/07/2024 Travel 05/04/2024 3:00 PM CELL PREPARER Office Visit [facility] [address] [place] [address] Enrike Kent MD Consult ([facility] refer for stent follow up from [facility], [employer], records requested, 04/18/24 EKG) 05/04/2024 Telephone [facility] [place] [place] [address] Enrike Kent MD Appointment Request 05/04/2024 Telephone [facility] [address] [place] [address] Enrike Kent MD Schedule Test 05/04/2024 Travel 04/30/2024 Telephone [facility] [address] [place] [address] nErike Kent MD Cardiac Rehab 04/29/2024 Scan [facility] [address] [place] [address] Scanned, Doc Pccl 04/27/2024 Abstract [facility] [address] [place] [address] Abstract, Doc Pccl 04/27/2024 Telephone [facility] ie [address] [place] [address] [phone] Enrike Kent MD Appointment Request from Last 3 Months Family History Medical History Relation Comments COPD Mother Coronary artery disease Mother Kidney Disease Mother Diabetes Sister Hypertension Sister Relation Status Comments Mother Sister Social History Tobacco Use Types Packs/Day Years Used Date Smoking Tobacco: Every Day Cigarettes Passive Smoke Exposure: Current Smokeless Tobacco: Never Tobacco Cessation:Ready to Q uit: No; Counseling Given: No Alcohol Use Standard Drinks/Week Comments Not Currently 0 (1 standard drink = 0.6 oz pur e alcohol) Comments No Sex and Gender Information Value Date Recorded Sex Assigned at Female 09/24/2023 12:17 PM CDT Legal Sex Female 8:48 PM CDT Gender Identity Female 09/24/2023 12:17 PM CDT Sexual Orientation Straight 09/24/2023 12 :17 PM CDT Last Filed Vital Signs Vital Sign Reading Time Taken Comments Blood Pressure 120/50 05/04/2024 3:18 PM CELL PREPARER Pulse 67 05/04/2024 3:18 PM CELL PREPARER Temperature 35.6 C (96.1 F) 04/18/2024 6:52 AM CELL PREPARER Respiratory Rate 16 05/04/2024 3:18 PM CELL PREPARER Oxygen Saturation 97% 05/04/2024 3:18 PM CELL PREPARER Inhaled Oxygen Concentration - - Weight 73.7 kg (162 lb 6.4 oz) 05/04/2024 3:18 P M CELL PREPARER Height 162.6 cm (5' 4 ) 05/04/2024 3:18 PM CELL PREPARER Body Mass Index 27.88 05/04/2024 3:18 PM CELL PREPARER Plan of Treatment Upcoming Encounters Date Type Department Care Team (Late st Contact Info) Description 08/10/2024 10:30 AM CDT Appointment [facility] Non Invasive [facility] - [facility] [address] [place] [address] Enrike Kent MD [address] [facility] [address] [place] [address] 09/07/2024 9:00 AM CDT Office Visit [facility] [place] [address] Enrike Kent MD [address] [facility] [address] [place] [address] Health Maintenance Due Date Last Done Comments Colorectal Cancer Screening Colonoscopy (10 Years) 1957 Hepatitis C 1975 RSV Immunization or 60+ Years (1 - Risk 60-74 years 1-dose series) 2017 Zoster Vaccines (2 of 2) 01/25/2021 11/30/2020 Annual Medicare Wellness Visit 2022 Dexa Scan (General) 2022 COVID-19 Vaccine (1 - 2023-2 5 season) 2023 PHQ-2 (Physician [place]) 03/24/2024 Mammogram Screening 06/10/2026 06/10/2024 DTaP, Tdap and Td Vaccines ( 2 - Td or Tdap) 11/30/2030 11/30/2020 Pneumococcal Vaccine: 50+ Years Completed 05/07/2022, 11/30/2020 Meningococcal B Vaccine Aged Out No l onger eligible based on patient's age to complete this topic Meningococcal Vaccine Aged Out No kayla luis eligible based on patient's age to complete this topic RSV Immunizations Under 20 Months Aged Out No longer eligible b ased on patient's age to complete this topic Medical Devices Implanted Type Area Nail Maker Device Identifier Shelf Expiration Date Model / Serial / Lot Mesh Symbotex Composite 12cm - [id number] Implanted:Qty: 1 on 09/18/2023 by Rod Giang MD at [facility] Mesh N/A: Abdomen [employer] [id number] 12/22/2027 [id number] / / [id number] Procedures Procedure Name Priority Date/Time Associated Diagnosis Comments MG SCREENING W RADHA EDMUNDO DIGI Routine 06/10/2024 8:33 AM CDT Visit for screening mammogram CT LUNG SCREENING Routine 05/07/2024 9:3 3 AM CELL PREPARER History of tobacco use disorder from Last 3 Months Results * MG SCREENING W RADHA EDMUNDO DIGI (06/10/2024 8:33 AM CDT) Anatomical Region Laterality Modality Breast Bilateral Mammography 06/10/2024 10:0 3 AM CDT Impressions 06/10/2024 10:03 AM CDT IMPRESSION: No suspicious change since the previous exams. Recommendation: 1: Routine Screening Bilateral in 1 Year Assessment: ACR BI-RADS 2 - BENIGN FINDING(S) Ordered By: MARKUS VANEGAS Interpreted By: Tai Love MD, 06/10/2024 10:03 AM Narrative 06/10/2024 10:03 AM CDT [address] [place] [address] Examination: Digital screening mammogram with CAD. Clinical history: Asymptomatic patient presents for routine screening. Comparison: 12/03/2017, 07/17/2015, 01/17/2012. Technique: Bilateral digital mammograms. The exam was interpreted with the use of a computer-aided detection (CAD) system. Additional 3-D tomosynthesis images were acquired. Tissue density: There are scattered areas of fibroglandular density. Findings: The breast tissue contains scattered fibroglandular densities. Metallic biopsy marker on the right again evident. No suspicious mass, microcalcification or area of architectural distortion can be identified. From a mammographic standpoint, routine followup in one year would seem adequate. us Markus Vanegas TRACK REPAIR SUPERVISOR-C MAMMO Final R esult * CT LUNG SCREENING (05/07/2024 9:33 AM CELL PREPARER) Anatomical Region Laterality Modality Chest Computed Tomogra phy 05/07/2024 12:0 9 PM CELL PREPARER Impressions 05/07/2024 12:19 PM CELL PREPARER IMPRESSION: 1. LUNG-RADS category 1: Negative, no evidence of primary lung cancer. 2. LUNG-RADS category S: Coronary artery and carotid atherosclerotic calcifications. 3. Other incidental findings as above. RECOMMENDATIONS: Continued routine annual LDCT lung screening. Suggest next exam on or around May 07, 2025. Thank you for choosing the [facility] Lung Screening Program. Ordered By: MARKUS VANEGAS Interpreted By: Chaitanya Elizalde DO, 05/07/2024 12:09 PM Narrative 05/07/2024 12:19 PM CELL PREPARER [place] [id number] [facility] [place] [address] EXAM: LUNG SCREENING LOW-DOSE CT THORAX WITHOUT CONTRAST DATE: May 07, 2024. HISTORY: Asymptomatic patient with history of smoking meeting [facility] high-risk criteria for lung screening. * 67 years * 30 pack years or greater * Current smoker or have quit smoking within the last 15 years COMPARISON: Chest radiographs 04/18/2024, and 07/06/2014. TECHNIQUE: Noncontrast, helical, low-dose CT (LDCT) chest per standard departmental protocol. A dose lowering technique was used for this procedure, which may include, but is not limited to, dose reduction technique, automated exposure control, the use of iterative reconstruction, and ALARA (As Low As Reasonably Achievable) / Image Gently techniques. FINDINGS Lung Screening Specific (LUNG-RADS): Negative. Nodules with specific calcifications: complete, central, popcorn, concentric rings, and fat containing nodules. Nodule 1 (image 120, series 3): 14 mm solid, smooth, parenchymal nodule with central calcification in the right lower lobe. Nodule 2 (image 38, series 3): 2 mm solid, smooth, calcified nodule in the left upper lobe. Potentially Significant Incidentals (LUNG-RADS category S): There are carotid atherosclerotic calcifications. There are coronary artery calcifications. Pulmonary Incidentals: There is paraseptal emphysema. Other Incidentals: Degenerative arthritis affects the visualized lower cervical spine. Multilevel degenerative disc disease affects the thoracic spine, most prominent in the mid thoracic spine. There are atherosclerotic calcifications of the thoracic aorta with normal anatomic variant aberrant right subclavian artery. There are atherosclerotic calcifications of the visualized upper abdominal aorta. A splenunculus is incompletely visualized Procedure Note Chaitanya Elizalde, - 05/07/2024 [facility] [address] [facility] [address] [place] [address] EXAM: LUNG SCREENING LOW-DOSE CT THORAX WITHOUT CONTRAST DATE: May 07, 2024. HISTORY: Asymptomatic patient with history of smoking meeting [facility]-risk criteria for lung screening. * 69 years * 30 pack years or greater * Current smoker or have quit smoking within the last 15 years COMPARISON: Chest radiographs 04/18/2024, and 07/06/2014. TECHNIQUE: Noncontrast, helical, low-dose CT (LDCT) chest per standarddepartmental protocol. A dose lowering technique was used for thisprocedure, which may include, but is not limited to, dose reductiontechnique, automated exposure control, the use of iterativereconstruction, and ALARA (As Low As Reasonably Achievable) / Image Gentlytechniques. FINDINGS Lung Screening Specific (LUNG-RADS): Negative. Nodules with specificcalcifications: complete, central, popcorn, concentric rings, and fatcontaining nodules. Nodule 1 (image 120, series 3): 14 mm solid, smooth, parenchymal nodulewith central calcification in the right lower lobe. Nodule 2 (image 38, series 3): 2 mm solid, smooth, calcified nodule in theleft upper lobe. Potentially Significant Incidentals (LUNG-RADS category S): There are carotid atherosclerotic calcifications. There are coronaryartery calcifications. Pulmonary Incidentals: There is paraseptal emphysema. Other Incidentals: Degenerative arthritis affects the visualized lowercervical spine. Multilevel degenerative disc disease affects the thoracicspine, most prominent in the mid thoracic spine. There are atheroscleroticcalcifications of the thoracic aorta with normal anatomic variant aberrantright subclavian artery. There are atherosclerotic calcifications of thevisualized upper abdominal aorta. A splenunculus is incompletelyvisualized IMPRESSION: 1. LUNG-RADS category 1: Negative, no evidence of primary lung cancer. 2. LUNG-RADS category S: Coronary artery and carotid atheroscleroticcalcifications. 3. Other incidental findings as above. RECOMMENDATIONS: Continued routine annual LDCT lung screening. Suggestnext exam on or around May 07, 2025. Thank you for choosing the [facility]ening[facility]. Ordered By: MARKUS VANEGAS Interpreted By: Chaitanya Elizalde DO, 05/07/2024 12:09 PM Markus Vanegas TRACK REPAIR SUPERVISOR-C CT Final R esult from Last 3 Months Insurance [employer] Care Teams Room Server Relationship Specialty Start Date End Date Lior aBca MD [address] [facility] [place] [phone] PCP - General FAMILY PRACTICE 04/18/24 Enrike Kent MD [address] [facility] [address] [place] [address] Physician INTERVENTIONAL CARDIOLOGY 04/27/24 Josefa Green MD [address] [place] [address] CARDIOLOGY 04/27/24
--- OUTSIDE RECORDS SUMMARY | 2024-07-25 10:04 | XMS_ITS | Data Portability ---
Author Organization [facility] Address [address] [place] [address] Care Team Providers Care Depalletizer Operator Name Role Phone ZEUS VARGAS Primary Care Provider [phone] Assessment Encounter Date Assessment Date Assessment LastModified by Organization Details LastModified Time 02/26/2022 02/26/2022 This patient is 66-year-old female with a persistent and growing left ovarian cyst. Is low in suspicion for malignancy but needs to be ruled out entirely. We are getting CA 125 today. We talked about laparoscopic bilateral salpingo-oophor ectomy. We agreed to move forward with that. We made a decision to perform surgery today. Spent over 40 minutes [id number]. More than 50% was counseling. Talked about the etiology, natural history and treatment of ovarian cyst in her age group. Talked about the procedure in detail. Talked about risks, benefits and alternatives. She understands there is risk of injury and that injuries can result in hospitalization , more surgery, severe illness. [email or web address] Not available 02/26/2022 11:51:53 Plan of Treatment Reminders Order Date Submit Date Provider Last Modified By Organization Details Last Modified Time Details Appointments None recorded. Lab None recorded. Referral None recorded. Procedures None recorded. Surgeries salpingo-oo phorectomy, laparoscopi c (SURG) 2021 022 [facility] Surgery [facility], [address], [place], [address], 15:20:26 Imaging None recorded. Medication Orders None recorded. Patient TargetsNo targets recorded. Patient InstructionsNo instructions recorded. Reason for Referral None Reported. Results Created Date Observation Date Name Description Value Unit Range Abnormal Flag Note LastModifiedBy Organization Detail LastModifiedTime 02/27/20 22 02/26/2022 CA 125 Ca 125 13.0 units /mL 0.0-35 .0 This assay was perfo rmed using [employer] ratio n reage nts and test kits. Value s obtai deisi with other assay metho ds or kits canno t be used inter bhatt eably . Not Available [facility] (Lab) [address], [place], [address], 02/27/2022 03:32:41 02/06/20 22 01/31/2022 US, pelvi s, compl ete No observ ation record ed. [address] [place], [address], 02/06/2022 11:46:10 Result Notes None recorded. Procedures Surgical History Date Name Laterality Status Provider Name and Address Organization Details Recorded Time 03/06/20 22 SALPINGO-OOPHOREC GERALDO, LAPAROSCOPIC (SURG) completed Caryl Le [facility] 03/07/2022 10:14:59 09/06/19 20 Date of Last Pap Smear completed [facility] 03/13/2022 14:31:59 09/06/19 20 Date of Last Mammogram completed [facility] 03/13/2022 14:31:59 03/24/18 70 Tonsillectomy completed [facility] 02/26/2022 10:57:31 Tonsillectomy completed [facility] 03/13/2022 14:32:07 Imaging Results Imaging Date Name Status LastModified by Organiz ation Details LastModified Time 01/31/2022 US, pelvis, complete completed [address] [place], [address], 02/06/2022 11:46:10 Procedure Notes None recorded. Medical Equipment None Reported. Allergies Allergen ID Allergen Name Allergen Category Reaction Reaction Severity Criticality Documentation Date Start Date Code Code System Note Provider Name and Address Organization Details Recorded Time 53394 Product containin g penicilli n (product) medicatio n Not available Not available Not available 02/26/2022 81825 8001 SNOMED [facility] 2 11:11:04 Medications Name Sig Start Date Stop Date Status Note LastModified by Organization Details LastModified Time fluoxetine 40 mg capsule active Not Available Not Available N ot Available atorvastatin 80 mg tablet active Not Available Not Available Not Available carvedilol 3.125 mg tablet active Not Available Not Available Not Available Vitals Date Recorded Body height Body mass index (BMI) Body weight Systolic blood pressure Diastolic blood pressure Provider Name and Address Organization Details Last Updated DateTime 02/26/2022 162.56 cm 28.5 kg/m2 72672.33 g 167 mm[Hg] 72 mm[Hg] [facility] 2 11:10:44 Date Recorded Body height Body mass index (BMI) Body weight Systolic blood pressure Diastolic blood pressure Provider Name and Address Organization Details Last Updated DateTime 03/13/2022 162.56 cm 28.3 kg/m2 43345.74 g 165 mm[Hg] 67 mm[Hg] [facility] 2 14:31:55 Social History Question Answer Notes LastModified by Organizat ion Details LastModified Time Tobacco Smoking Status Current Every Day Smoker [facility] 03/13/2022 14:32:04 What Is Your Level Of Alcohol Consumption? Occasional Information not available 03/13/2022 How Many Years Have You Consumed Alcohol? 40 Information not available 03/13/2022 Are You Blind Or Do You Have Difficulty Seeing? No Information not available 03/13/2022 What Is Your Level Of Caffeine Consumption? Occasional Information not available 03/13/2022 How Much Tobacco Do You Chew? None Information not available 03/13/2022 In The 14 Days Before Symptom Onset, Have You Had Close Contact With A Laboratory-confir med COVID-19 While That Case Was Ill? No Information not available 03/13/2022 In The 14 Days Before Symptom Onset, Have You Had Close Contact With A Person Who Is Under Investigation For COVID-19 While That Person Was Ill? No Information not available 03/13/2022 Have You Been To An Area Known To Be High Risk For COVID-19? Yes Information not available 03/13/2022 Are You Deaf Or Do You Have Serious Difficulty Hearing? No Information not available 03/13/2022 What Type Of Diet Are You Following? REGULAR Information not available 03/13/2022 What Is The Highest Grade Or Level Of School You Have Completed Or The Highest Degree You Have Received? 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 No Information not available 03/13/2022 Do You Use Protection During Sex? No Information not available 03/13/2022 Do You Use Your Seat Belt Or Car Seat Routinely? Yes Information not available 03/13/2022 Do You Have Smoke And Carbon Monoxide Detectors In Your Home? Yes Information not available 03/13/2022 At What Age Did You Start Smoking Tobacco? 20 Information not available 03/13/2022 How Much Tobacco Do You Smoke? 0.5 PPD Information not available 03/13/2022 Do You Feel Stressed (tense, Restless, Nervous, Or Anxious, Or Unable To Sleep At Night)? [id number] Information not available 03/13/2022 Do You Use Any Illicit Or Recreational Drugs? No Information not available 03/13/2022 Do You Use Sunscreen Routinely? Yes Information not available 03/13/2022 How Many Years Have You Smoked Tobacco? 45 Information not available 02/26/2022 Have You Used IV Drugs? No Information not available 03/13/2022 Sex: Unknown Functional Status Question Answer Note LastModified by Organizat ion Details LastModified Time Are you able to walk? YESWOREST Information not available 03/13/2022 What is your exercise level? Occasional Information not available 03/13/2022 Mental Status None recorded. Family History Relationship Description Onset Age of this Age Resolved Age Notes LastModified by Organization Details LastModified Time Sister Diabetes mellitus Not available 2021 10:56:52 Medical History Condition Response Anxiety Disorder Y Heart Problems Y High Cholesterol Y Gynecological History Statement/Question Response Date of Last Mammogram 09/06/2019 Date of LMP 02/21/2010 On BCP's at Conception? N N Was last menstrual period normal Y STIs/STDs N HPV Vaccine N Duration of Flow (days) 4 Current Control Method Sterilizati on Age at First Child 22 If Post Menopausal, Age at Menopause 52 Frequency of Cycle (Q days) 28 Sexually Active? Y None Age of first menstrual cycle 17 Date of Last Pap Smear 09/06/2019 Sexual Problems? N Desired Control Method None LMP Approximate Y Obstetrics History GPAL:G 3 P 3 0 0 3 Type Value Full Term 3 Living 3 Total 3 Past Encounters Encounter ID Performer Location Encounter Start Date Encounter Closed Date Diagnosis/Indication Diagnosis SNOMED-CT Code Diagnosis ICD10 Code Diagnosis Note [id number] Telly Pope MD [facility] [address] [address] 02/26/2022 10:30:33 02/26/2022 13:13:07 Cyst of left ovary [id number] N83.202 This patient is a 66-year-ol d female with large and growing left ovarian cyst. We have agreed to perform laparoscop ic bilateral salpingo-o ophorectom y. She understand s risks, benefits, and alternativ es. She has completed the informed consent process is ready to proceed. [id number] Telly Pope MD [facility] [address] [address] 03/07/2022 09:49:38 03/07/2022 09:51:10 [id number] Telly Pope MD [facility] [address] [address] 03/13/2022 14:16:12 03/14/2022 14:21:23 Postoperative care [id number] Z48.89 This patient is a 66-year-ol d female who presents for postop follow-up. She had a laparoscop ic bilateral salpingo-o ophorectom y 1 week ago. She is recovering normally. Her incisions are clean dry and intact. She will follow-up as needed Health Concerns Section Related Observation LastModified by Organization Detai ls LastModified Time None Recorded Concern Status LastModified by Organization Details LastModified Time None Recorded Advance Directives Directive None Recorded Payers Encounter Date Sequence Insurance Name Policy Number Policy Mai Covered Member ID Mai Member ID Guarantor Name 02/26/2022 1 [employer] [id number] Radha Velasco Piyush [id number] Radha Piyush 03/06/2022 1 UMR [id number] Radha J Piyush [id number] Radha Piyush 03/13/2022 1 UMR [id number] Radha J Piyush [id number] Radha Piyush Notes Date Note Type Note Provider Name and Address Organization Details Recorded Time 02/26/2022 text/html This patient is 66-year-old female with a persistent and growing left ovarian cyst. Is low in suspicion for malignancy but needs to be ruled out entirely. We are getting CA 125 today. We talked about laparoscopic bilateral salpingo-oophorect andria. We agreed to move forward with that. We made a decision to perform surgery today. Spent over 40 minutes [id number]. More than 50% was counseling. Talked about the etiology, natural history and treatment of ovarian cyst in her age group. Talked about the procedure in detail. Talked about risks, benefits and alternatives. She understands there is risk of injury and that injuries can result in hospitalization, more surgery, severe illness. Telly Pope MD [address], [place], [address], [facility] 02/26/2022 11:52:11 03/13/2022 text/html This patient is a 66-year-old female who presents for postop follow-up. She had a laparoscopic bilateral salpingo-oophorect andria 1 week ago. She is recovering normally. Her incisions are clean dry and intact. She will follow-up as needed Telly Pope MD [address], [place], [address], [place] [facility] 03/13/2022 18:45:10 OBGyn Episode Ob Episode Information Episode Created Date Number of Fetuses Patient Bloodtype Patient rh Status Prepregnancy Weight lbs Domestic Partner Domestic Partner Phone Father Name Orthopaedic General Status 02/27/20 22 1 CLOSED Fetus Data First Name Last Name Admitted to NICU Weight (g) Sex Living Outcome Pediatric Complications Fetus ID Race Codes Race Delivery Type 3259.96 5704 F Full Term [id number] Vaginal Delivery Rodrigue Calculation Initial Rodrigue Date Initial Exam Date Initial Exam Provider Initial Ultrasound Date Last Menstrual Period Date Ultra Sound Weeks Gestation 0 Eighteen To Twenty Week Rodrigue Update Ultra Sound Date Fundal Height At Umbil Quickening Date Ultra Sound Latest Weeks Gestation Final Rodrigue Confirmed By Final Rodrigue Confirmed Date Final Rodrigue Date Ultra Sound Latest Days Gestation 0 0 Menstrual History Last Menstrual Date Menses Monthly On Bcp Conception Prior Menses Frequency Hcg Plus Date Menarche Onset Age Delivery Information Delivery Date Delivery Type Labor Anesthesia Weeks Gestation Incision Type Labor Labor Length Hrs Delivered By Post Complications Tubal Sterilization Discharge Date Comments 8 Jil Discharge Information Feeding Method Contraceptive Method Maternal HG B and HCT Levels Ob Episode Information Episode Created Date Number of Fetuses Patient Bloodtype Patient rh Status Prepregnancy Weight lbs Domestic Partner Domestic Partner Phone Father Name Orthopaedic General Status 02/27/20 22 1 CLOSED Fetus Data First Name Last Name Admitted to NICU Weight (g) Sex Living Outcome Pediatric Complications Fetus ID Race Codes Race Delivery Type 4252.42 5 M Full Term [id number] Vaginal Delivery Rodrigue Calculation Initial Rodrigue Date Initial Exam Date Initial Exam Provider Initial Ultrasound Date Last Menstrual Period Date Ultra Sound Weeks Gestation 0 Eighteen To Twenty Week Rodrigue Update Ultra Sound Date Fundal Height At Umbil Quickening Date Ultra Sound Latest Weeks Gestation Final Rodrigue Confirmed By Final Rodrigue Confirmed Date Final Rodrigue Date Ultra Sound Latest Days Gestation 0 0 Menstrual History Last Menstrual Date Menses Monthly On Bcp Conception Prior Menses Frequency Hcg Plus Date Menarche Onset Age Delivery Information Delivery Date Delivery Type Labor Anesthesia Weeks Gestation Incision Type Labor Labor Length Hrs Delivered By Post Complications Tubal Sterilization Discharge Date Comments 3 40 Rick Discharge Information Feeding Method Contraceptive Method Maternal HG B and HCT Levels Ob Episode Information Episode Created Date Number of Fetuses Patient Bloodtype Patient rh Status Prepregnancy Weight lbs Domestic Partner Domestic Partner Phone Father Name Orthopaedic General Status 02/27/20 22 1 CLOSED Fetus Data First Name Last Name Admitted to NICU Weight (g) Sex Living Outcome Pediatric Complications Fetus ID Race Codes Race Delivery Type 3345.24 1 M Full Term [id number] Vaginal Delivery Rodrigue Calculation Initial Rodrigue Date Initial Exam Date Initial Exam Provider Initial Ultrasound Date Last Menstrual Period Date Ultra Sound Weeks Gestation 0 Eighteen To Twenty Week Rodrigue Update Ultra Sound Date Fundal Height At Umbil Quickening Date Ultra Sound Latest Weeks Gestation Final Rodrigue Confirmed By Final Rodrigue Confirmed Date Final Rodrigue Date Ultra Sound Latest Days Gestation 0 0 Menstrual History Last Menstrual Date Menses Monthly On Bcp Conception Prior Menses Frequency Hcg Plus Date Menarche Onset Age Delivery Information Delivery Date Delivery Type Labor Anesthesia Weeks Gestation Incision Type Labor Labor Length Hrs Delivered By Post Complications Tubal Sterilization Discharge Date Comments 5 40 Darren Discharge Information Feeding Method Contraceptive Method Maternal HG B and HCT Levels
--- OUTSIDE RECORDS SUMMARY | 2024-07-25 10:43 | XMS_ITS | Clinical Summary ---
Author Organization [facility] Address [address] [place] [address] Care Team Providers Care Gas Welder Apprentice Name Role Phone Lior Baca MD Primary Care Provider [phone] Enrike Kent MD Unavailable [phone] Josefa Green MD Unavailable [phone] Allergies Active Allergy Reactions Criticality Noted Date [...] 09/17/2023 COPD (chronic obstructive pu [facility]monary [facility]) 09/17/2023 Kidney disease 07/28/2019 Hyperlipidemia 07/28/2019 Anxiety 07/28/2019 Heart attack ([facility]) 07/28/2019 Encounters Date Type Department Care Team Description 07/07/2024 Telephone [facility] [address] [place] [address] Enrike Kent MD Reschedule (Stress echo) 06/10/2024 8:17 AM CDT - 06/10/2024 11:59 PM CDT Hospital Encounter [facility] [address] [place] [place] [address] Markus Vanegas NP-[place] Discharge Disposition: Home or Self Care (Routine Discharge) 06/10/2024 Travel 05/26/2024 Telephone [facility] [address] [place] [address] Enrike Kent MD Reschedule (Stress echo) 05/07/2024 9:15 AM GENERATOR TECHNICIAN - 05/07/2024 11:59 PM GENERATOR TECHNICIAN Hospital Encounter [facility] [address] [place] [address] Markus Vanegas STATUE CARVER-[place] Discharge Disposition: Home or Self Care (Routine Discharge) 05/07/2024 Travel 05/04/2024 3:00 PM GENERATOR TECHNICIAN Office Visit [facility] [address] [place] [address] Enrike Kent MD Consult ([facility], [employer], records requested, 04/18/24 EKG) 05/04/2024 Telephone [facility] [place] [address] Enrike Kent MD Appointment Request 05/04/2024 Telephone [facility] [address] [place] [address] Enrike Kent MD Schedule Test 05/04/2024 Travel 04/30/2024 Telephone [facility] [address] [place] [address] Enrike Kent MD Cardiac Rehab 04/29/2024 Scan [facility] [address] [place] [address] Scanned, Doc Pccl 04/27/2024 Abstract [facility] [address] [place] [address] Abstract, Doc Pccl 04/27/2024 Telephone [facility] [address] [place] [address] [phone] Enrike Kent MD Appointment Request from Last [...] Comments Blood Pressure 120/50 05/04/2024 3:18 PM GENERATOR TECHNICIAN Pulse 67 05/04/2024 3:18 PM GENERATOR TECHNICIAN Temperature 35.6 C (96.1 F) 04/18/2024 6:52 AM GENERATOR TECHNICIAN Respiratory Rate 16 05/04/2024 3:18 PM GENERATOR TECHNICIAN Oxygen Saturation 97% 05/04/2024 3:18 PM GENERATOR TECHNICIAN Inhaled Oxygen Concentration - - Weight 73.7 kg (162 lb 6.4 oz) 05/04/2024 3:18 P M GENERATOR TECHNICIAN Height 162.6 cm (5' 4 ) 05/04/2024 3:18 PM GENERATOR TECHNICIAN Body Mass Index 27.88 05/04/2024 3:18 PM GENERATOR TECHNICIAN Plan of Treatment Upcoming Encounters Date Type Department Care Team (Late st Contact Info) Description 08/10/2024 10:30 AM CDT Appointment [facility] Non Invasive Cardiology - [facility] [address] [place] [address] Enrike Kent MD [address] [facility] [address] [place] [address] 09/07/2024 9:00 AM CDT Office Visit [facility] [place] [address] Enrike Kent MD [address] [facility] [address] [place] [address] Health Maintenance Due Date Last Done Comments Colorectal Cancer Screening Colonoscopy (10 Years) 1957 Hepatitis C 1975 RSV Immunization or 60+ Years (1 - Risk 60-74 years 1-dose series) 2017 Zoster Vaccines (2 of 2) 01/25/2021 11/30/2020 Annual Medicare Wellness Visit 2022 Dexa Scan (General) 2022 COVID-19 Vaccine (1 - 2023-2 5 season) 2023 PHQ-2 (Physician [place]) 03/24/2024 Mammogram Screening 06/10/2026 06/10/2024 DTaP, Tdap [...] this topic Medical Devices Implanted Type Area Cutter Operator Device Identifier Shelf Expiration Date Model / Serial / Lot Mesh Symbotex Composite 12cm - [id number] Implanted:Qty: 1 on 09/18/2023 by Rod Giang MD at [facility] Mesh N/A: Abdomen [employer] [id number] 12/22/2027 [id number] / / [id number] Procedures Procedure Name Priority Date/Time Associated Diagnosis Comments MG SCREENING W RADHA EDMUNDO DIGI Routine 06/10/2024 8:33 AM CDT Visit for screening mammogram CT LUNG SCREENING Routine 05/07/2024 9:3 3 AM GENERATOR TECHNICIAN History of tobacco use disorder from Last [...] 10:03 AM Narrative 06/10/2024 10:03 AM CDT [address] [place] [address] Examination: Digital screening mammogram with CAD. Clinical [...] year would seem adequate. us Markus Vanegas STATUE CARVER-C MAMMO Final R esult * CT LUNG SCREENING (05/07/2024 9:33 AM GENERATOR TECHNICIAN) Anatomical Region Laterality Modality Chest Computed Tomogra phy 05/07/2024 12:0 9 PM GENERATOR TECHNICIAN Impressions 05/07/2024 12:19 PM GENERATOR TECHNICIAN IMPRESSION: 1. LUNG-RADS category 1: Negative, no evidence of primary lung cancer. 2. LUNG-RADS category S: Coronary artery and carotid atherosclerotic calcifications. 3. Other incidental findings as above. RECOMMENDATIONS: Continued routine annual LDCT lung screening. Suggest next exam on or around May 07, 2025. Thank you for choosing the [facility] Lung Screening Program. Ordered By: MARKUS VANEGAS Interpreted By: Chaitanya Elizalde DO, 05/07/2024 12:09 PM Narrative 05/07/2024 12:19 PM GENERATOR TECHNICIAN [place] [id number] [place] [address] EXAM: LUNG SCREENING LOW-DOSE CT THORAX WITHOUT CONTRAST DATE: May 07, 2024. HISTORY: Asymptomatic patient with history of smoking meeting [facility] high-risk criteria for lung screening. * 69 [...] visualized Procedure Note Chaitanya Elizalde, - 05/07/2024 [facility] [address] [place] [address] EXAM: LUNG SCREENING LOW-DOSE CT THORAX WITHOUT [...] 07, 2025. Thank you for choosing the [facility] Lung ScreeningProgram. Ordered By: MARKUS VANEGAS Interpreted By: Chaitanya Elizalde DO, 05/07/2024 12:09 PM Markus Vanegas STATUE CARVER-C CT Final R esult from Last 3 Months Insurance [employer] Care Teams Gas Welder Apprentice Relationship Specialty Start Date End Date Lior Baca MD [address] [place] [phone] PCP - General FAMILY PRACTICE 04/18/24 Enrike [place] MD [address] [facility] [address] [place] [address] Physician INTERVENTIONAL CARDIOLOGY 04/27/24 Josefa Green MD [address] [place] [address] CARDIOLOGY 04/27/24
--- OUTSIDE RECORDS SUMMARY | 2024-07-25 10:43 | XMS_ITS | Encounter Summary ---
Author Organization [facility] Address [address] [place] [address] Care Team Providers Care Rotary Kiln Operator Name Role Phone Mariah Segura Primary Care Provider [phone] Lior Baca MD Primary Care Provider Enrike Kent MD Unavailable [phone] Josefa Green MD Unavailable [phone] Encounter Details Date Type Department Care Team (Late st Contact Info) Description 06/07/2017 Abstract [facility] [address] [place], [place] [id number] , Generic ConversionMD Social History Tobacco Use [...] Info) Description 08/10/2024 10:30 AM CDT Appointment [facility] Non Invasive Cardiology - [facility] [address] [place], [place] [address] Enrike [place] MD [address] [facility] [address] [place] [address] 09/07/2024 9:00 AM CDT [facility] [address] [place] [address] Enrike [place] MD [address] [address] documented as of this encounter Visit Diagnoses Not on filedocumented in this encounter Care Teams Rotary Kiln Operator Relationship Specialty Start Date End Date Mariah Segura PA [facility] [address] [place] [address] PCP - General APPLICATIONS PROCESSOR 04/13/19 04/17/24 Lior Baca MD [address] [place] [address] PCP - General FAMILY PRACTICE 04/18/24 Enrike Kent MD [address] [id number] Physician INTERVENTIONAL CARDIOLOGY 04/27/24 Josefa Green MD [address] [place] [address] CARDIOLOGY 04/27/24 documented as of this encounter
[2024-07-25 10:44] LABS: Basophils Absolute Auto 0.05 K/mm3 (0.00-0.10); Basophils Percent Auto 0.6 % (0.0-1.0); Eosinophils Absolute Auto 0.18 K/mm3 (0.02-0.50); Eosinophils Percent Auto 2.3 % (1.0-6.0); Hematocrit 35.7 % (35.0-42.0); Hemoglobin 11.6 g/dL (11.7-13.8); Immature Granulocyte Absolute 0.02 K/mm3 (0.00-0.00); Immature Granulocyte Percent A 0.3 % (0.0-0.0); Lymphocytes Absolute Auto 2.71 K/mm3 (1.10-4.50); Mean Corpuscular HGB Conc 32.5 g/dL (32-36); Mean Corpuscular Hemoglobin 31.1 pg (27.0-31.0); Mean Corpuscular Volume 95.7 fL (78.0-102.0); Mean Platelet Volume 10.1 fl (9.2-11.8); Monocytes Absolute Auto 0.53 K/mm3 (0.10-0.90); Monocytes Percent Auto 6.8 % (2.0-11.0); Neutrophils Absolute Auto 4.25 K/mm3 (1.70-7.20); Platelet Count Result 204 K/mm3 (150-420); Red Blood Count 3.73 M/mm3 (4.20-5.40); Red Cell Distribution Width 13.2 % (11.6-14.4); White Blood Count 7.7 K/mm3 (4.8-10.8)
[2024-07-25 11:12] LABS: Alanine Aminotransferase 28 U/L (14-59); Albumin Level 3.5 g/dL (3.4-5.0); Alkaline Phosphatase 83 U/L (46-116); Anion Gap 10 mmol/L (4-12); Aspartate Amino Transferase 17 U/L (15-37); Bilirubin,Total 0.4 mg/dL (0.00-1.00); Blood Urea Nitrogen 32 mg/dL (7-18); Calcium 9.1 mg/dL (8.5-10.1); Carbon Dioxide 25 mmol/L (21-32); Chloride 105 mmol/L (98-108); Estimated CRCL calculation 32 ml/min; Estimated Glomerular Filt Rate 34; Glucose 130 mg/dL (70-99); Lipase 52 U/L (16-77); NT Pro B Type Natriuretic Pept 494 pg/mL (0-125); Osmolality Calculated 298 mOsm/kg (285-295); Potassium 4.5 mmol/L (3.5-5.1); Sodium 140 mmol/L (136-145); Troponin I 4.6 ng/L (0.00-60.4)
== END 2024-07-25 11:35 | disposition home or self-care (01) ==
PROVIDERS: Emergency Provider Emergency Medicine; PCP Family Medicine
DX: R07.89 Other chest pain (principal); I25.10 Atherosclerotic heart disease of native coronary artery without angina pectoris; F17.210 Nicotine dependence, cigarettes, uncomplicated; Z79.82 Long term (current) use of aspirin; Z79.899 Other long term (current) drug therapy
CPT/HCPCS: 36415; 71045; 80053; 83690; 83880; 84484; 85025; 93005; 99284